=== PATIENT | male | born 1985 | race Caucasian/White ===

== ENCOUNTER 2016-06-24 15:40 | Emergency (ER) | payer BC, SELFPAY ==
[2016-06-24] MEDS ORDERED: Ketorolac Tromethamine 30 MG/ML VIAL ONE (15:48)
[2016-06-24] MEDS ORDERED: Ondansetron HCl/PF 4 MG/2 ML Vial ONE ×2 (15:48→16:45)
[2016-06-24 16:08] LABS: #Eosinphils 0.1 thou/uL (0.0-0.7); #Lymphocytes 2.2 thou/uL (1.20-3.40); #Monocytes 0.6 thou/uL (0.11-0.59); %Basophils 0.5 % (0.0-1.0); %Eosinophils 0.8 % (0.0-10.0); %Lymphocytes 24.6 % (21.0-51.0); %Monocytes 6.3 % (0.0-10.0); Hematocrit 43.8 % (42.0-52.0); Mean Platelet Volume 6.6 fL (7.4-10.4); White Blood Cell (WBC) Count 8.8 thou/uL (4.8-10.8)
[2016-06-24 16:33] LABS: ALT (SGPT) 32 U/L (0-55); AST (SGOT) 19 U/L (5-34); Alkaline Phosphatase 60 U/L (40-150); Anion Gap 18 mmol/L (10-20); BUN (Urea Nitrogen) 21 mg/dL (8.9-20.6); Bilirubin, Total 0.3 mg/dL (0.2-1.2); Calc. Creatinine Clearance 0 mL/min (70-130); Calcium 9.3 mg/dL (7.8-10.44); Carbon Dioxide 25 mmol/L (22-29); Chloride 103 mmol/L (98-107); Estimated GFR-MDRD 69; Globulin 2.9 g/dL (2.4-3.5); Protein, Total 7.4 g/dL (6.0-8.3)
[2016-06-24] MEDS ORDERED: HYDROcodone/Acetaminophen 5/325 mg Tablet ONE (17:17)
[2016-06-24 17:36] LABS: Bilirubin Negative (Negative); Blood, Urine Trace (Negative); Glucose, Urine (Dipstick) Negative (Negative); Ketone, Urine Negative (Negative); Nitrite Negative (Negative); Protein, Urine (Dipstick) Trace mg/dL (Neg-Trace); Urobilinogen 0.2 mg/dL (0.2-1.0)
[2016-06-24 17:43] LABS: Squamous Epithelial 0-3 HPF (0-3); WBC/HPF 0-3 HPF (0-3)
--- NOTE | 2016-06-24 17:43 | CT ---
CT ABDOMEN AND PELVIS WITHOUT CONTRAST: History: Left sided flank pain radiating to the abdomen and groin. FINDINGS: The absence of IV and oral contrast limits the exam for evaluation of solid organs and bowel. The lungs bases are clear. No free air or free fluid is seen in the abdomen or pelvis. No calcifie d gallstones are seen. A normal appearing appendix is noted. No calculi are seen in the kidneys, ureters or urinary bladder. There is a 3 mm calculus at the lef t UVJ with an accompanying mild left sided hydroureteral nephrosis. No right sided hydroureteral ne phrosis is seen. IMPRESSION: 1. 3 mm left UVJ calculus with mild hydroureteral nephrosis. POS: [facility]
--- NOTE | 2016-06-24 18:29 | PICIS ---
[facility] EMERGENCY RECORD TRIAGE (15:43 MCBE) TRIAGE NOTES: LEFT FLANK PAIN RADIATES TO ABD AND GROIN. (15:43 MCBE) PATIENT: NAME: Baldo Branch, AGE: 30, GENDER: male, : Rajani 1985, TIME OF GREET: Sun Jun 24, 2016 15:41, PREFERRED LANGUAGE: Setswana, ETHNICITY: Not or , ECODE BILLING MAP: [facility], SSN: [id number], Zip Code: [address], KG WEIGHT: 86.18, PHONE: , , , PERSON ID: [id number]. (15:43 MCBE) COMPLAINT: FLANK PAIN. (15:43 MCBE) ADMISSION: URGENCY: 3 Urgent, ADMISSION SOURCE: Home, TRANSPORT: Walk-in, BED: TRIAGE. (15:43 MCBE) SIRS SCORING: Heart Rate 55-109 (0), Temp range 96.8-101.1 (0), respiratory rate 12-24 (0), Mental Status altered: no (0), Infection or Suspected Infection: No. (15:55 LCAS) TRIAGE SCREENING: Patient denies suicidal ideation, Patient denies presence of domestic violence. (15:55 LCAS) PROVIDERS: TRIAGE NURSE: Philomena Lott. (15:43 MCBE) KNOWN ALLERGIES No Known Drug Allergies CURRENT MEDICATIONS (15:54 LCAS) None VITAL SIGNS VITAL SIGNS: BP: 169/90, Pulse: 51, Resp: 18, Pain: 10, O2 sat: 97, Time: 06/24/2016 16:00. (16:00 LCAS) BP: 149/89, Pulse: 50, Resp: 18, Temp: 98 (Oral), Pain: 6, O2 sat: 96, Time: 06/24/2016 17:15. (17:15 LCAS) BP: 138/78, Pulse: 76, Resp: 16, Temp: 98.0, Pain: 3, O2 sat: 100 on RA, Time: 06/24/2016 18:15. (18:15 MCBE) NURSING ASSESSMENT: ABDOMEN WITH PROCEDURES (15:50 LCAS) CONSTITUTIONAL: Complex assessment performed, Patient arrives ambulatory, Gait steady, History obtained from patient, Patient appears, in distress due to pain, Patient cooperative, Patient alert, Oriented to person, place and time, Skin warm, Skin, moist, diaphoretic, Skin normal in color, Mucous membranes pink, Mucous membranes moist. PAIN: sharp pain, to the left lower quadrant, to the left flank, on a scale 0-10 patient rates pain as 10. ABDOMEN: Abdomen assessment findings include abdomen symmetrical, Abdomen soft, tender, to the left flank, Associated with nausea, Associated with vomiting. GENITOURINARY MALE: Associated with urinary complaints described as, patient reports he feels like he needs to pee often but cannot void. IV: IV established, to the left antecubital, using an 18 gauge catheter, in one attempt, Saline lock established, Flushed with &a-1R&a+25V*p+0X*h4817Q*c152B*c15G*c2P*p-0X&a-25V&a+1RName: Baldo Branch : M30 MedRec: [id number] AcctNum: [id number] Prepared: Rajani Jun 24, 2016 22:46 by Interface Page 1 of 11 pMD [facility] EMERGENCY RECORD normal saline (mls): 10. SAFETY: Side rails up, Cart/Stretcher in lowest position, Call light within reach, Hospital ID band on. NURSING PROCEDURE: DISCHARGE NOTE (18:15 MCBE) DISCHARGE: Patient discharged to home, ambulating without assistance, friend driving, accompanied by friend, Summary of Care printed/ provided, Discharge instructions given to patient, Simple or moderate discharge teaching performed, by PHILOMENA ELIZALDE, EXPLAINED DISCHARGE INSTRUCTIONS, Above person(s) verbalized understanding of discharge instructions and follow-up care, Patient treated and evaluated by physician. BELONGINGS: Belongings and valuables with patient upon arrival to the Emergency Department include:, Belongings and valuables with patient at time of discharge include:, pants, shirt, shoes, cellular phone, wallet, Belongings remain with patient, Valuables remain with patient. VITAL SIGNS: BP: 138, / 78, Pulse: 76, Resp: 16, Temp: 98.0, Pain: 3, O2 sat: 100, on: RA, Time: 1800. NURSING PROCEDURE: IV FOLLOW-UP SITE 1: After procedure, no drainage at IV site, After procedure, no swelling at IV site, After procedure, no redness at IV site, IV discontinued, due to patient being discharged, catheter intact. (17:41 MCBE) IV discontinued, due to patient being discharged, catheter intact. (17:42 LCAS) NURSING PROCEDURE: NURSE NOTES (16:42 LCAS) NURSES NOTES: Patient states decreased pain, Notes: PT VOMITING. MD NOTIFIED. ORDER DETAILS Order Name: CBC with Differential, Status: Active, Time: 15:45 06/24/2016, User: KARI, - Ordered for: MD Cuevas John, - Entered by: MD Cuevas John - Sun Jun 24, 2016 15:45, - Quantity: 1, Order Name: Comprehensive Metabolic Panel, Status: Active, Time: 15:45 06/24/2016, User: KARI, - Ordered for: MD Cuevas John, - Entered by: MD Cuevas John - Sun Jun 24, 2016 15:45, - Quantity: 1, Order Name: CT Abdomen Pelvis WO Con, Status: Active, Time: 15:45 06/24/2016, User: KARI, - Ordered for: MD Cuevas John, - Entered by: MD Cuevas John - Sun Jun 24, 2016 15:45, - Quantity: 1, Order Name: SALINE LOCK, Status: Done, Time: 15:55 06/24/2016, User: LIZ, &a-1R&a+25V*p+0X*d8487G*c152B*c15G*c2P*p-0X&a-25V&a+1RName: Baldo Branch : M30 MedRec: [id number] AcctNum: [id number] Prepared: SatJun 24, 2016 22:46 by Interface Page 2 of 11 D [facility] EMERGENCY RECORD - Ordered for: MD Cuevas John, - Entered by: MD Cuevas John - Sun Jun 24, 2016 15:45, - Quantity: 1, Order Name: Urinalysis w/ Rflx Microscopic, Status: Active, Time: 15:45 06/24/2016, User: JOHE, - Ordered for: MD Cuevas John, - Entered by: MD Cuevas John - [place] Jun 24, 2016 15:45, - Quantity: 1. MEDICATION ADMINISTRATION SUMMARY Drug Name: *[place], Dose Ordered: 1 tab(s), Route: Oral, Status: Given, Time: 17:20 06/24/2016, Drug Name: Zofran intravenous, Dose Ordered: 4 mg, Route: IV Push, Status: Given, Time: 16:56 06/24/2016, Drug Name: Dilaudid injection, Dose Ordered: 1 mg, Route: IV Push, Status: Given, Time: 16:03 06/24/2016, Drug Name: Normal Saline, Dose Ordered: 1000 mL, Route: IV Fluid Infusion, Status: Given, Time: 15:53 06/24/2016, Drug Name: Zofran intravenous, Dose Ordered: 4 mg, Route: IV Push, Status: Given, Time: 15:53 06/24/2016, Drug Name: Toradol injection, Dose Ordered: 30 mg, Route: IV Push, Status: Given, Time: 15:53 06/24/2016, *Additional information available in notes, Detailed record available in Medication Service section. MEDICATION SERVICE Dilaudid injection: Order: Dilaudid injection (hydromorphone HCl) - Dose: 1 mg : IV Push Schedule: Now Ordered by: Irvin Cuevas MD Entered by: Irvin Cuevas MD [place] Jun 24, 2016 15:46 , Acknowledged by: Celia Walker RN [place] Jun 24, 2016 15:46 Documented as given by: Celia Walker RN [place] Jun 24, 2016 16:03 Patient, Medication, Dose, Route and Time verified prior to administration. Amount given: 1mg, IV SITE #1 IVP, subsequent different medication, Slowly, Awake and alert- acceptable, Catheter placement confirmed via flush prior to administration, IV site without signs or symptoms of infiltration during medication administration, No swelling during administration, No drainage during administration, IV flushed after administration, Correct patient, time, route, dose and medication confirmed prior to administration, Patient advised of actions and side-effects prior to administration, Allergies confirmed and medications reviewed prior to administration, Patient in position of comfort, Side rails up, Cart in lowest position. : Follow Up : No signs or symptoms of allergic reaction noted, Decreased pain, _IV SITE #1:_. (17:14 LCAS) [place]: Order: [place] (hydrocodone bitartrate/acetaminophen) - Dose: 1 tab(s) : Oral Schedule: Now &a-1R&a+25V*p+0X*e1015N*c152B*c15G*c2P*p-0X&a-25V&a+1RName: Baldo Branch : M30 MedRec: [id number] AcctNum: [id number] Prepared: Rajani Jun 24, 2016 22:46 by Interface Page 3 of 11 pMD [facility] EMERGENCY RECORD Notes: 5/325mg PO X 1 Ordered by: Irvin Cuevas MD Entered by: MD Rajani May Jun 24, 2016 17:14 , Acknowledged by: TONIO Sequeira Jun 24, 2016 17:15 Documented as given by: TONIO Sequeira Jun 24, 2016 17:20 Patient, Medication, Dose, Route and Time verified prior to administration. Correct patient, time, route, dose and medication confirmed prior to administration, Patient advised of actions and side-effects prior to administration, Allergies confirmed and medications reviewed prior to administration. Normal Saline: Order: Normal Saline (0.9 % sodium chloride) - Dose: 1000 mL : IV Fluid Infusion Schedule: Now Ordered by: Irvin Cuevas MD Entered by: MD Rajani May Jun 24, 2016 15:45 , Acknowledged by: TONIO Sequeira Jun 24, 2016 15:46 Documented as given by: TONIO Sequeira Jun 24, 2016 15:53 Patient, Medication, Dose, Route and Time verified prior to administration. IV SITE #1 IV fluids established for hydration, IV SITE #1 1st bag hung, IV SITE #1 bolus of 1000 ml established, IV SITE #1 Rate of bolus, wide open, via primary tubing, Catheter placement confirmed via flush prior to administration, IV site without signs or symptoms of infiltration during medication administration, No swelling during administration, No drainage during administration, IV flushed after administration, Correct patient, time, route, dose and medication confirmed prior to administration, Patient advised of actions and side-effects prior to administration, Allergies confirmed and medications reviewed prior to administration. : Follow Up : No signs or symptoms of allergic reaction noted, _IV SITE #1:_, IV fluid infusion discontinued, on SatJun 24, 2016 16:50, ., Total amount infused: 1000ML. (16:50 LCAS) Toradol injection: Order: Toradol injection (ketorolac tromethamine) - Dose: 30 mg : IV Push Schedule: Now Ordered by: Irvin Cuevas MD Entered by: Irvin Cuevas MD SatJun 24, 2016 15:46 , Acknowledged by: Celia Walker RN SatJun 24, 2016 15:46 Documented as given by: Celia Walker RN SatJun 24, 2016 15:53 Patient, Medication, Dose, Route and Time verified prior to administration. IV SITE #1 IVP, subsequent different medication, Slowly, Catheter placement confirmed via flush prior to administration, IV site without signs or symptoms of infiltration during medication administration, No swelling during administration, No drainage during administration, IV flushed after administration, Correct patient, time, route, dose and medication confirmed prior to administration, Patient advised of actions and side-effects prior to administration, Allergies confirmed and medications reviewed prior to administration. Zofran intravenous: Order: Zofran intravenous (ondansetron HCl) &a-1R&a+25V*p+0X*s3695W*c152B*c15G*c2P*p-0X&a-25V&a+1RName: Baldo Branch : M30 MedRec: [id number] AcctNum: [id number] Prepared: SatJun 24, 2016 22:46 by Interface Page 4 of 11 pMD [facility] EMERGENCY RECORD - Dose: 4 mg : IV Push Schedule: Now Ordered by: Irvin Cuevas MD Entered by: Irvin Cuevas MD SatJun 24, 2016 15:45 , Acknowledged by: Celia Walker RN SatJun 24, 2016 15:46 Documented as given by: Celia Walker RN SatJun 24, 2016 15:53 Patient, Medication, Dose, Route and Time verified prior to administration. IV SITE #1 IVP, initial medication, Slowly, Catheter placement confirmed via flush prior to administration, IV site without signs or symptoms of infiltration during medication administration, No swelling during administration, No drainage during administration, IV flushed after administration, Correct patient, time, route, dose and medication confirmed prior to administration, Patient advised of actions and side-effects prior to administration, Allergies confirmed and medications reviewed prior to administration. Zofran intravenous: Order: Zofran intravenous (ondansetron HCl) - Dose: 4 mg : IV Push Schedule: Now Ordered by: Irvin Cuevas MD Entered by: MD Rajani May Jun 24, 2016 16:54 Documented as given by: Celia Walker RN [place] Jun 24, 2016 16:56 Patient, Medication, Dose, Route and Time verified prior to administration. IV SITE #1 IVP, repeat same medication, Slowly, Catheter placement confirmed via flush prior to administration, IV site without signs or symptoms of infiltration during medication administration, No swelling during administration, No drainage during administration, IV flushed after administration, Correct patient, time, route, dose and medication confirmed prior to administration, Patient advised of actions and side-effects prior to administration, Allergies confirmed and medications reviewed prior to administration. HPI FLANK PAIN (22:27 JOHE) CHIEF COMPLAINT: Patient presents for evaluation of flank pain, on the left. HISTORIAN: History provided by patient, Pt. reports sudden onset of sharp, waxing/waning left flank pain radiating down into the groin, associated with nausea. and sensation of urge to urinate but slight difficulty urinating. patient reports no exacerbating/relieving factors. No F&C, vomiting, diarrhea, hematuria, dysuria or other complaints. No trauma or ill contacts. Never had similar pain before. No personal or FH of aneurysm connective tissue disorders, or kidney stones. LOCATION MALE: Symptoms are localized, most severe in the left flank, Migration of pain over time to. QUALITY: Pain is sharp in nature, described as stabbing. SEVERITY: Maximum severity of symptoms severe, Currently symptoms are severe. TIME COURSE: Sudden onset of symptoms, just prior to arrival, There has been no change in the patient's symptoms &a-1R&a+25V*p+0X*o1943D*c152B*c15G*c2P*p-0X&a-25V&a+1RName: Baldo Branch : M30 MedRec: [id number] AcctNum: [id number] Prepared: Rajani Jun 24, 2016 22:46 by Interface Page 5 of 11 pMD [facility] EMERGENCY RECORD over time, are constant. ASSOCIATED WITH MALE: No associated chills, No associated diarrhea, No associated fever, No associated hematuria, No associated loss of appetite, Associated with nausea, No associated trauma, No associated inability to tolerate oral intake, No associated urinary tract infection signs or symptoms, No associated vomiting, No associated weight change. EXACERBATED BY: Patient's condition exacerbated by nothing. RELIEVED BY: Patient's condition relieved by nothing because patient has not tried anything for relief. ROS (22:33 JOHE) CONSTITUTIONAL: Historian denies chills, denies fever, denies lethargy, denies malaise. EYES: Historian denies eye pain, denies eye redness, denies vision changes. ENT: Historian denies otalgia, denies rhinorrhea, denies sore throat. CARDIOVASCULAR: Historian denies chest pain, denies syncope, denies palpitations. RESPIRATORY: Historian denies cough, denies shortness of breath, denies wheezing. GI: Historian reports abdominal pain, denies appetite changes, denies constipation, denies diarrhea, denies hematemesis, denies hematochezia, denies melena, reports nausea, denies vomiting. GENITOURINARY MALE: Historian denies dysuria, denies hematuria, reports hesitancy, denies urinary frequency, denies urine output changes, denies urinary retention, reports urinary urgency. MUSCULOSKELETAL: Historian denies arthralgias, denies fall, denies joint redness, denies joint swelling, denies myalgias, denies neck pain. SKIN: Historian denies rash, denies skin changes. NEUROLOGIC: Historian denies dizziness, denies focal weakness, denies gait changes, denies headache, denies paresthesias, denies seizures. HEMO/LYMPHATIC: Historian denies abnormal blood clotting. NOTES: All systems reviewed, negative except as described above. PAST MEDICAL HISTORY (15:55 LCAS) MEDICAL HISTORY: No past medical history, Flu vaccine up to date, Tetanus immunization up to date. MALE SURGICAL HISTORY: Patient has no surgical history. PSYCHIATRIC HISTORY: No previous psychiatric history. SOCIAL HISTORY: Patient denies alcohol use, Patient denies drug use, Patient currently uses tobacco, Lives at home. PHYSICAL EXAM (22:34 JOHE) CONSTITUTIONAL: Vital signs reviewed, Patient appears non toxic, Patient alert and oriented to person, place and time. &a-1R&a+25V*p+0X*y8879S*c152B*c15G*c2P*p-0X&a-25V&a+1RName: Baldo Branch : M30 MedRec: [id number] AcctNum: [id number] Prepared: Rajani Jun 24, 2016 22:46 by Interface Page 6 of 11 pMD [facility] EMERGENCY RECORD HEAD: Head exam normal, Head exam included findings of head atraumatic, normocephalic. EYES: Eye exam normal, Eye exam included findings of eyelids normal to inspection, Pupils equally round and reactive to light, Extraocular muscles intact, Conjunctiva normal, Sclera normal. ENT: Pharynx exam normal, not injected, no swelling, symmetrical, Uvula exam normal, midline, no edema, Tonsil exam normal, not enlarged, no exudates, Mouth exam normal, mucous membranes moist, no drooling, no lesions, no lacerations, no tongue elevation. NECK: Neck exam normal, Neck exam included findings of normal range of motion, Trachea midline. RESPIRATORY CHEST: Respiratory and chest exam normal, Respiratory exam included findings of no respiratory distress, Breath sounds clear, No wheezing, No rales, No rhonchi, Breath sounds not absent, Breath sounds not diminished, Chest exam included findings of chest movement symmetrical, Chest expansion equal, CTAB. CARDIOVASCULAR: Cardiovascular assessment normal, Cardiovascular exam included findings of heart rate regular rate and rhythm, Heart sounds normal, Pedal pulses normal, RRR, no R/M/G> + pulses all ext., no edema. ABDOMEN MALE: Abdominal exam included findings of abdomen tender, Bowel sounds normal, no distension, no mass, no pulsatile masses, no peritoneal signs, no rigidity, no guarding, no rebound, Soft, ND, mildly TTP LLQ and left flank without guarding or rebound TTP. + BS, + mild left CVAT. BACK: Back exam included findings of normal inspection, range of motion normal, Costovertebral angle tenderness, on the left. UPPER EXTREMITY: Upper extremity exam normal, Upper extremity exam included findings of inspection normal, Range of motion normal, Motor strength normal, Sensation intact, Radial pulse normal. LOWER EXTREMITY: Lower extremity exam normal, Lower extremity exam included findings of inspection normal, Range of motion normal, Motor strength normal, Sensation intact, Posterior tibial pulse normal, Pedal pulse normal, no edema. NEURO: Neuro exam normal, [place] coma scale 15, Neuro exam findings include patient oriented to person, place and time, Speech normal, Gait normal, Cranial nerves intact, no focal motor deficits, no focal sensory deficits. SKIN: Skin exam normal, Skin exam included findings of skin warm, dry, and normal in color, no rash. LAB INTERPRETATION (22:36 JOHE) INTERPRETATION: I reviewed the lab results, No clinically significant lab abnormalities, CBC normal, Chemistry abnormal, BUN elevated, Urinalysis abnormal, positive for erythrocytes. EVENTS TRANSFER: Triage to Emergency Triage. (Rajani Jun 24, 2016 15:43 MCBE) &a-1R&a+25V*p+0X*z7485G*c152B*c15G*c2P*p-0X&a-25V&a+1RName: Baldo Branch : M30 MedRec: [id number] AcctNum: [id number] Prepared: Rajani Jun 24, 2016 22:46 by Interface Page 7 of 11 D [facility] EMERGENCY RECORD Emergency Triage to Emergency Room -03. (15:43 MCBE) Removed from Emergency Emergency Room -03. (18:21 MCBE) RADIOLOGYINTERPRETATION (16:41 JOHE) ABDOMEN: Abdomen/pelvis CT scan, without contrast shows, ureteral stone, hydronephrosis to the left kidney, Other findings: 3mm UVJ stone with mild hydrouretero-nephrosis. COLOR WORKER: Preliminary review of CT scans by, Radiologist. DOCTOR NOTES RE-EVALUATION: The patient's condition has improved. (17:19 JOHE) The patient's condition has improved. (22:37 JOHE) TEXT: Pt. reports some improvement of pain after medications, would like to rest a little longer before going home. Discussed results. (17:19 JOHE) Addendum - Chart completed after patient discharge. Patient felt better after meds and fluids, ready to go home. Discussed treatment for ureteral stones, PO fluid intake, need to strain urine, close f/u with urology and warning signs for immediate return to ED. (22:37 JOHE) DATA REVIEWED: Lab data reviewed, Xray data reviewed. (17:19 JOHE) Lab data reviewed, Xray data reviewed. (22:37 JOHE) PROBLEM LIST No recorded problems DIAGNOSIS (18:12 JOHE) FINAL: PRIMARY: left ureteral stone. DISPOSITION PATIENT: Disposition Type: Discharge, Disposition: *Discharge Home, Condition: Good. (18:12 JOHE) Patient left the department. (18:21 BE) INSTRUCTION (18:14 JOHE) DISCHARGE: KIDNEY STONE W/ COLIC. FOLLOWUP: Leonel RUBIO, KELLIE, Urology, [address] [address], , Follow up with Primary Care Physician in 2-3 days, Follow up with Specialist as soon as possible. SPECIAL: Follow-up with your PCP. PRESCRIPTION Flomax: CAPSULE, EXT RELEASE 24 HR : 0.4 mg : ORAL : Quantity: 1 Unit: cap(s) Route: ORAL Schedule: once a day (in the morning) Dispense: 7 Unit: cap(s) May substitute. Refills: No Refills . (18:13 JOHE) NOTES: No Refills. (18:13 JOHE) acetaminophen-codeine: TABLET : 300 mg-30 mg : ORAL : Quantity: &a-1R&a+25V*p+0X*g4369I*c152B*c15G*c2P*p-0X&a-25V&a+1RName: Baldo Branch : M30 MedRec: [id number] AcctNum: [id number] Prepared: Rajani Jun 24, 2016 22:46 by Interface Page 8 of 11 pMD [facility] EMERGENCY RECORD 1 Unit: tab(s) Route: ORAL Schedule: every 4 hours prn Dispense: 20 Unit: tab(s) May substitute. Refills: No Refills . (18:13 JOHE) NOTES: No Refills. (18:13 JOHE) Zofran ODT: TABLET,DISINTEGRATING : 4 mg : ORAL : Quantity: 1 Unit: tab(s) Route: ORAL Schedule: every 6 hours PRN Dispense: 15 Unit: tab(s) May substitute. Refills: No Refills . (18:14 [facility]) NOTES: No Refills. (18:14 [facility]) IMAGING (18:34 [facility]) *DISCHARGE INSTRUCTIONS RECEIPT: Image captured from scanner. Page 2 added. Image captured from scanner. *SUPPLY CHARGE SHEET: Image captured from scanner. ADMIN (22:38 [facility]) DIGITAL SIGNATURE: MD Cuevas John. RESULTS RADIOLOGY: CT Abdomen Pelvis WO Con Observe DT: Rajani Jun 24, 2016 15:49, ABDPELWO CT ABDOMEN AND PELVIS WITHOUT CONTRAST: History: Left sided flank pain radiating to the abdomen and groin. FINDINGS: The absence of IV and oral contrast limits the exam for evaluation of solid organs and bowel. The lungs bases are clear. No free air or free fluid is seen in the abdomen or pelvis. No calcifie d gallstones are seen. A normal appearing appendix is noted. No calculi are seen in the kidneys, ureters or urinary bladder. There is a 3 mm calculus at the lef t UVJ with an accompanying mild left sided hydroureteral nephrosis. No right sided hydroureteral ne phrosis is seen. IMPRESSION: 1. 3 mm left UVJ calculus with mild hydroureteral nephrosis. POS: [facility] . (17:57 [facility]) LABORATORY: Comprehensive Metabolic Panel Collection DT: Rajani Jun 24, 2016 16:18, Sodium 142 mmol/L, Range (136-145), Potassium 3.7 mmol/L, Range (3.5-5.1), Chloride 103 mmol/L, Range (98-107), Carbon Dioxide 25 mmol/L, Range (22-29), &a-1R&a+25V*p+0X*d9799J*c152B*c15G*c2P*p-0X&a-25V&a+1RName: Baldo Branch : M30 MedRec: [id number] AcctNum: [id number] Prepared: Rajani Jun 24, 2016 22:46 by Interface Page 9 of 11 [facility] EMERGENCY RECORD Anion Gap 18 mmol/L, Range (10-20), *BUN (Urea Nitrogen) 21 - H mg/dL, Range (8.9-20.6), Creatinine 1.24 mg/dL, Range (0.7-1.3), Estimated GFR-MDRD 69 , Reference Range for Estimated GFR: Greater than 90, mL/min/1.73 m2 NOTE: The MDRD equation has not been validated for use, with the elderly (over 70 years of age), women, patients with, serious comorbid condition or persons with extremes of body size, muscle, mass, or nutritional status. , Glucose 98 mg/dL, Range (70-105), Calcium 9.3 mg/dL, Range (7.8-10.44), Bilirubin, Total 0.3 mg/dL, Range (0.2-1.2), Protein, Total 7.4 g/dL, Range (6.0-8.3), NOTE: Plasma values are generally 0.3 to 0.5 g/dL higher than serum values, due to the presence of fibrinogen. , Albumin 4.5 g/dL, Range (3.5-5.0), Globulin 2.9 g/dL, Range (2.4-3.5), Alb/Glob Ratio 1.6 g/dL, Range (1.2-2.2), Alkaline Phosphatase 60 U/L, Range (40-150), AST (SGOT) 19 U/L, Range (5-34), ALT (SGPT) 32 U/L, Range (0-55). (16:39 [facility]) CBC with Differential Collection DT: Rajani Jun 24, 2016 16:18, White Blood Cell (WBC) Count 8.8 thou/uL, Range (4.8-10.8), Red Blood Cell (RBC) Count 5.00 mill/uL, Range (4.70-6.10), Hemoglobin 14.5 g/dL, Range (14.0-18.0), Hematocrit 43.8 %, Range (42.0-52.0), Mean Corpuscular Volume 87.5 fl, Range (80.0-94.0), Mean Corpuscular Hemoglobin 29.1 pg, Range (27.0-31.0), Mean Corpuscular HGB CONC 33.2 g/dL, Range (32.0-36.0), RBC Distribution Width 12.0 %, Range (11.5-14.5), Platelet Count 235 thou/uL, Range (130-400), *Mean Platelet Volume 6.6 - L fL, Range (7.4-10.4), %Neutrophils 67.8 %, Range (42.0-75.0), %Lymphocytes 24.6 %, Range (21.0-51.0), %Monocytes 6.3 %, Range (0.0-10.0), %Eosinophils 0.8 %, Range (0.0-10.0), %Basophils 0.5 %, Range (0.0-1.0), #Neutrophils 6.0 thou/uL, Range (1.40-6.50), #Lymphocytes 2.2 thou/uL, Range (1.20-3.40), *#Monocytes 0.6 - H thou/uL, Range (0.11-0.59), #Eosinphils 0.1 thou/uL, Range (0.0-0.7), #Basophils 0.0 thou/uL, Range (0.0-0.2). (16:39 JOHE) Urine Microscopic Collection DT: [place] Jun 24, 2016 17:23, RBC/HPF 4-6 HPF, Range (0-3), WBC/HPF 0-3 HPF, Range (0-3), Squamous Epithelial 0-3 HPF, Range (0-3). (17:57 JOHE) Urinalysis w/ Rflx Microscopic Collection DT: [place] Jun 24, 2016 17:23, Color Yellow , Range (Yellow), Clarity SL HAZY , Range (Clear), &a-1R&a+25V*p+0X*y4324X*c152B*c15G*c2P*p-0X&a-25V&a+1RName: Baldo Branch : M30 MedRec: [id number] AcctNum: [id number] Prepared: SatJun 24, 2016 22:46 by Interface Page 10 of 11 pMD [facility] EMERGENCY RECORD Specific [place], Urine 1.020 , Range (1.005-1.030), pH, Urine 7.0 , Range (5.0-9.0), Leukocyte Negative , Range (Negative), Nitrite Negative , Range (Negative), Protein, Urine (Dipstick) Trace mg/dL, Range (Neg-Trace), Glucose, Urine (Dipstick) Negative mg/dL, Range (Negative), Ketone, Urine Negative mg/dL, Range (Negative), Urobilinogen 0.2 mg/dL, Range (0.2-1.0), Bilirubin Negative , Range (Negative), *Blood, Urine Trace - H , Range (Negative). (17:57 KARI) Bell: KARI=MD Mason, Irvin HILL=TONIO Walker, Celia BHATIA=Philomena Lott &a-1R&a+25V*p+0X*a3627T*c152B*c15G*c2P*p-0X&a-25V&a+1RName: Baldo Branch : M30 MedRec: [id number] AcctNum: [id number] Prepared: Rajani Jun 24, 2016 22:46 by Interface Page 11 of 11 [facility]MD [facility]
== END 2016-06-24 18:15 | disposition home or self-care (01) ==
LOC: NAV ERS 15:40
DX: N13.2 Hydronephrosis with renal and ureteral calculous obstruction (principal); F17.210 Nicotine dependence, cigarettes, uncomplicated
CPT/HCPCS: 74176; 80053; 81003; 81015; 85025; 96361; 96374; 96375; 96376; J1170; J1885; J2405